=== PATIENT | female | born 1955 | race African-American/Black ===

== ENCOUNTER 2017-04-16 11:38 | Emergency (ER) | payer BC ==
[~2017-04-16] VITALS: Ht 157.5 cm; Wt 80.0 kg
[2017-04-16 18:07] VITALS: BP 175/89
== END 2017-04-16 18:10 | disposition home or self-care (01) ==
LOC: ER 12:01
DX: I10 Essential (primary) hypertension (principal); F17.210 Nicotine dependence, cigarettes, uncomplicated; Z98.51 Tubal ligation status
CPT/HCPCS: 99283